=== PATIENT | female | born 1950 ===

== ENCOUNTER 2018-01-08 09:05 | Outpatient (CLI) | payer OTHER | END 2018-01-08 09:08 | disposition home or self-care (01) | LOC: RAD 09:05 | DX: M17.11 Unilateral primary osteoarthritis, right knee (principal) ==

== ENCOUNTER 2018-01-16 09:22 | Outpatient (CLI) | payer OTHER | END 2018-01-16 09:30 | disposition home or self-care (01) | LOC: SONOGRAMA 09:22 | DX: R31.0 Gross hematuria (principal); R30.0 Dysuria ==

== ENCOUNTER → 2022-06-07 | Emergency (ER) | payer OTHER ==
[~2022-06-07] VITALS: Ht 154.9 cm; Wt 80.7 kg
[~2022-06-07] MED LIST: COZAAR100 MG; SYNTHROID50 MCG; [UNRECOGNIZED DRUG - OTHER]
== END | disposition left against medical advice (07) ==
LOC: ER 20:23
DX: Z53.21 Procedure and treatment not carried out due to patient leaving prior to being seen by health care provider (principal)